=== PATIENT | male | born 1975 | race African-American/Black ===

== ENCOUNTER 2020-07-12 13:55 | Emergency (ER) | payer SELFPAY ==
--- NOTE | 2020-07-12 14:51 | EDPHYS ---
Physician Documentation [facility] Name: Eduard Hutson Age: 44 yrs Sex: Male : 1975 Arrival Date: 07/12/2020 Time: 13:57 Bed 26 Private MD: ED Physician Chad Jacobsen HPI: 07/12 14:49 This 44 yrs old Black Male presents to ER via Ambulatory with complaints of Abscess. pm1 14:49 the patient presents with a swollen area of the gums. Description: raised. Onset: The pm1 symptoms/episode began/occurred 2 day(s) ago. Possible cause(s): dental infection. Associated signs and symptoms: Pertinent negatives: fever. Modifying factors: the symptoms are alleviated by patient lanced the abscess on his gum yesterday. Patient with history of dental pain for many months to he upper front teeth. When an abscess show up on his gums he lances them with a needle. has not seen a dentist yet. Severity of symptoms: in the emergency department the symptoms have improved. The patient has experienced similar episodes in the past, multiple times. It is unknown whether or not the patient has recently seen a physician. Historical: - Allergies: 14:04 No Known Allergies; ll1 - PMHx: 14:04 Asthma; ll1 - PSHx: 14:04 None; ll1 - Immunization history:: Flu vaccine is up to date. - Social history:: Smoking status: Patient reports the use of cigarette tobacco products, smokes one pack cigarettes per day. ROS: 14:49 Constitutional: Negative for fever, chills, and weight loss. pm1 14:49 Cardiovascular: Negative for chest pain, palpitations, and edema, Respiratory: Negative for shortness of breath, cough, wheezing, and pleuritic chest pain, MS/Extremity: Negative for injury and deformity, Skin: Negative for injury, rash, and discoloration, Neuro: Negative for headache, weakness, numbness, tingling, and seizure. 14:49 ENT: Positive for dental pain, Negative for sore throat, difficulty swallowing, difficulty handling secretions, hoarseness. Exam: 14:49 Constitutional: This is a well developed, well nourished patient who is awake, alert, pm1 and in no acute distress. Head/Face: Normocephalic, atraumatic. 14:49 Neck: Trachea midline, no thyromegaly or masses palpated, and no cervical lymphadenopathy. Supple, full range of motion without nuchal rigidity, or vertebral point tenderness. No Meningismus. 14:49 Skin: Warm, dry with normal turgor. Normal color with no rashes, no lesions, and no evidence of cellulitis. MS/ Extremity: Pulses equal, no cyanosis. Neurovascular intact. Full, normal range of motion. 14:49 ENT: Mouth: Gums: no abscess present, Tongue: is normal, no trismus, Dental exam: dental caries, that is moderate, diffusely, missing teeth, diffusely. 14:49 Cardiovascular: Exam negative for acute changes, Rate: normal, Rhythm: regular, Pulses: no pulse deficits are appreciated. 14:49 Respiratory: Exam negative for acute changes, respiratory distress, shortness of breath. 14:49 Neuro: Exam negative for acute changes, Orientation: is normal, Mentation: is normal, Motor: is normal, moves all fours. Vital Signs: 14:02 BP 145 / 95; Pulse 109; Resp 18; Temp 98.0; Pulse Ox 97% ; Weight 95.25 kg; Height 6 ll1 ft. 0 in. (182.88 cm); Pain 9/10; 14:02 Body Mass Index 28.48 (95.25 kg, 182.88 cm) ll1 MDM: 14:35 Patient medically screened. [facility] 14:49 Data reviewed: vital signs. Data interpreted: Pulse oximetry: on room air is 97 %. pm1 Interpretation: normal. Counseling: I had a detailed discussion with the patient and/or guardian regarding: the historical points, exam findings, and any diagnostic results supporting the discharge/admit diagnosis, the need for outpatient follow up, for definitive care, a dentist, to return to the emergency department if symptoms worsen or persist or if there are any questions or concerns that arise at home. Administered Medications: 15:02 Drug: [place] 10 mg-325 mg 1 tabs {Note: RASS 0.} Route: PO; tw2 15:15 Follow up: Response: No adverse reaction; RASS: Alert and Calm (0) tw2 Disposition: 07/13 07:56 Co-signature as Attending Physician, Chad Jacobsen MD I agree with the assessment and [facility] plan of care. Disposition: 07/12/20 14:50 Discharged to Home. Impression: Periapical abscess without sinus. - Condition is Stable. - Discharge Instructions: Dental Abscess, Dental Pain. - Prescriptions for Augmentin 875- 125 mg Oral Tablet - take 1 tablet by ORAL route every 12 hours for 10 days; 20 tablet. Tylenol- Codeine #3 300-30 mg Oral Tablet - take 2 tablets by ORAL route every 6 hours As needed; 20 tablet. - Medication Reconciliation Form, Thank You Letter, Antibiotic Education, Prescription Opioid Use, Work release form form. - Follow up: Emergency Department; When: As needed; Reason: Worsening of condition. Follow up: Private Physician; When: 2 - 3 days; Reason: Recheck today's complaints, Continuance of care, Re-evaluation by your physician. - Problem is new. - Symptoms have improved. Signatures: Chad Jacobsen MD MD cha Marinas, Patrick, NP [employer] pm1 Trina Recinos RN RN tw2 Zafar Tran RN RN ll1 Corrections: (The following items were deleted from the chart) 07/12 15:16 14:50 07/12/2020 14:50 Discharged to Home. Impression: Periapical abscess without tw2 sinus. Condition is Stable. Forms are Work release form, Medication Reconciliation Form, Thank You Letter, Antibiotic Education, Prescription Opioid Use. Follow up: Emergency Department; When: As needed; Reason: Worsening of condition. Follow up: Private Physician; When: 2 - 3 days; Reason: Recheck today's complaints, Continuance of care, Re-evaluation by your physician. Problem is new. Symptoms have improved. pm1
--- NOTE | 2020-07-12 14:51 | ER ---
Nurse's Notes [facility] Name: Eduard Hutson Age: 44 yrs Sex: Male : 1975 Arrival Date: 07/12/2020 Time: 13:57 Bed 26 Private MD: Diagnosis: Periapical abscess without sinus Presentation: 07/12 14:02 Chief complaint: Patient states: Front teeth upper jaw tooth and gum pain for 4 days. ll1 No known fever. Coronavirus screen: Client denies travel out of the [place] in the last 14 days. At this time, the client does not indicate any symptoms associated with coronavirus-19. Ebola Screen: Patient denies travel to an Ebola-affected area in the 21 days before illness onset. Initial Sepsis Screen: Does the patient meet any 2 criteria? HR > 90 bpm. No. Patient's initial sepsis screen is negative. Does the patient have a suspected source of infection? Yes: Other: tooth pain. Risk Assessment: Do you want to hurt yourself or someone else? Patient reports no desire to harm self or others. Onset of symptoms was July 08, 2020. 14:02 Method Of Arrival: Ambulatory ll1 14:02 Acuity: [place] 4 ll1 Historical: - Allergies: 14:04 No Known Allergies; ll1 - PMHx: 14:04 Asthma; ll1 - PSHx: 14:04 None; ll1 - Immunization history:: Flu vaccine is up to date. - Social history:: Smoking status: Patient reports the use of cigarette tobacco products, smokes one pack cigarettes per day. Screenin:19 Abuse screen: Denies threats or abuse. Nutritional screening: No deficits noted. tw2 Tuberculosis screening: No symptoms or risk factors identified. Fall Risk None identified. Assessment: 14:20 General: Appears in no apparent distress. slender, Behavior is calm, cooperative, tw2 appropriate for age. Pain: Complains of pain in mouth. Neuro: Level of Consciousness is awake, alert, obeys commands, Oriented to person, place, time, situation. Cardiovascular: Patient's skin is warm and dry. Respiratory: Airway is patent Respiratory effort is even, unlabored, Respiratory pattern is regular, symmetrical. EENT: Reports pain in frenulum and gums. Derm: No signs and/or symptoms reported regarding the dermatologic system. Musculoskeletal: Range of motion: intact in all extremities. Vital Signs: 14:02 BP 145 / 95; Pulse 109; Resp 18; Temp 98.0; Pulse Ox 97% ; Weight 95.25 kg; Height 6 ll1 ft. 0 in. (182.88 cm); Pain 9/10; 14:02 Body Mass Index 28.48 (95.25 kg, 182.88 cm) ll1 ED Course: 13:57 Patient arrived in ED. as 14:04 Triage completed. ll1 14:04 Arm band placed on. ll1 14:18 Bed in low position. Call light in reach. Pulse ox on. NIBP on. tw2 14:19 Trina Recinos, RN is Primary Nurse. tw2 14:34 Hai Gill NP is PHCP. pm1 14:34 Chad Jacobsen MD is Attending Physician. pm1 15:15 No provider procedures requiring assistance completed. Patient did not have IV access tw2 during this emergency room visit. Administered Medications: 15:02 Drug: [place] 10 mg-325 mg 1 tabs {Note: RASS 0.} Route: PO; tw2 15:15 Follow up: Response: No adverse reaction; RASS: Alert and Calm (0) tw2 Outcome: 14:50 Discharge ordered by MD. pm1 15:15 Discharged to home ambulatory. tw2 15:15 Condition: stable 15:15 Discharge instructions given to patient, Instructed on discharge instructions, follow up and referral plans. no drinking with medication, no driving heavy equipment, medication usage, Demonstrated understanding of instructions, follow-up care, medications, Prescriptions given X 2. 15:16 Patient left the ED. tw2 Signatures: Angélica Wilder as Hai Gill NP [employer] pm1 Trina Recinos RN RN tw2 Zafar Tran RN RN ll1
[2020-07-12] MEDS ORDERED: HYDROCODONE/APAP 10/325 TAB ONE (15:21)
[2020-07-12 15:22] VITALS: BP 145/95; TEMP 98; O2SAT 97
== END 2020-07-12 15:16 | disposition home or self-care (01) ==
LOC: ER 13:55
DX: K04.7 Periapical abscess without sinus (principal); F17.210 Nicotine dependence, cigarettes, uncomplicated
CPT/HCPCS: 99283